=== PATIENT | female | born 1995 | race African-American/Black ===

== ENCOUNTER 2021-08-31 02:57 | Inpatient (IN) | payer OTHER ==
[~2021-08-31] VITALS: Ht 165.1 cm; Wt 83.1 kg
[2021-08-31] VITALS (20 sets, daily range): BP systolic 114–181; BP diastolic 68–111
[2021-08-31] MEDS ORDERED: PRENTAB9 PO (03:18)
[2021-08-31] MEDS ORDERED: OXYTOCIN DRIP 30 UNITS in IV 1 EA IV PRN ×4 (04:05)
[2021-08-31] MEDS ORDERED: OXYTOCIN INJ 10 UNITS/ML VIAL (J2590) IM PRN (04:05)
[2021-08-31] MEDS ORDERED: METHYLERGONOVINE MALEATE 0.2 MG/ML VIAL (J2210) IM PRN (04:05)
[2021-08-31] MEDS ORDERED: OXYTOCIN DRIP 30 UNITS in IV 1 EA IV SCH ×5 (04:05→16:45)
[2021-08-31] MEDS ORDERED: LIDOCAINE 1% MDV 20ML VIAL INFIL PRN (04:05)
[2021-08-31] MEDS ORDERED: OXYTOCIN INJ 10 UNITS/ML VIAL (J2590) IV PRN (04:05)
[2021-08-31] MEDS ORDERED: TRANEXAMIC ACID INJection 1,000 MG in NS 100 ML IV PRN (04:05)
[2021-08-31] MEDS ORDERED: PENICILLIN G POTASSIUM IV 5 MU in D5W MINI-BAG PLUS 100 ML IV STA (04:05)
[2021-08-31] MEDS ORDERED: CARBOPROST TROMETHAMINE 250 MCG/ML AMP IM PRN (04:05)
[2021-08-31 04:16] LABS: HEMATOCRIT 34.3 % (36.0-47.0); HEMOGLOBIN 11.3 g/dl (12.0-15.5); MEAN CORPUSCULAR HEMOGLOBIN 30.3 pg (27.0-33.0); MEAN CORPUSCULAR HGB CONC 32.9 g/dl (32.0-36.5); PLATELET COUNT, AUTOMATED 201 10^3/uL (150-450); RED BLOOD COUNT 3.73 10^6/uL (4.00-5.40)
[2021-08-31] MEDS ORDERED: PROMETHAZINE 25MG/ML 1ML VIAL IV ONE (04:20)
[2021-08-31] MEDS ORDERED: BUTORPHANOL 2 MG/ML INJ (J0595) IV ONE (04:20)
[2021-08-31] MEDS: LR 1,000 ML IV SCH ×3 (04:25→15:45)
[2021-08-31] MEDS: PENICILLIN G POTASSIUM IV 2.5 MU in IV 1 EA IV SCH ×2 (08:27→12:37)
[2021-08-31] MEDS ORDERED: METHYLERGONOVINE MALEATE 0.2 MG TAB PO PRN (16:45)
[2021-08-31] MEDS ORDERED: DIBUCAINE 1% OINTMENT 30GM TOP PRN (16:45)
[2021-08-31] MEDS ORDERED: IBUPROFEN 600MG TAB PO PRN (16:45)
[2021-08-31] MEDS: DOCUSATE SODIUM 100MG CAPSULE PO SCH (21:25)
[2021-09-01 05:55] VITALS: BP 150/92
[2021-09-01] MEDS: PRENATAL VITAMINS CHEWABLE TABLET PO SCH (08:33)
[2021-09-01] MEDS: DOCUSATE SODIUM 100MG CAPSULE PO SCH ×2 (08:33→20:21)
[2021-09-01] MEDS: IBUPROFEN 800 MG TAB PO PRN ×2 (08:34→17:08)
[2021-09-01 18:00] VITALS: BP 130/68
[2021-09-02 06:00] VITALS: BP 125/60
[2021-09-02] MEDS: IBUPROFEN 800 MG TAB PO PRN (08:17)
[2021-09-02] MEDS: PRENATAL VITAMINS CHEWABLE TABLET PO SCH (08:17)
[2021-09-02] MEDS: DOCUSATE SODIUM 100MG CAPSULE PO SCH (08:17)
== END 2021-09-02 11:27 | disposition home or self-care (01) | DRG 807 ==
LOC: M LDO 02:57 → M LDI 03:31 → M OBS 19:49
PROVIDERS: ADMIT Obstetrics & Gynecology; ATTEND Obstetrics & Gynecology
PROC: 10E0XZZ Delivery of Products of Conception, External Approach (ICD-10-PCS; principal; 2021-08-31)
DX: O98.52 Other viral diseases complicating childbirth (principal); Z37.0 Single live birth; Z3A.38 38 weeks gestation of pregnancy; B00.9 Herpesviral infection, unspecified; O99.824 Streptococcus B carrier state complicating childbirth; O36.0990 Maternal care for other rhesus isoimmunization, unspecified trimester, not applicable or unspecified; Z88.2 Allergy status to sulfonamides; Z88.6 Allergy status to analgesic agent

== ENCOUNTER 2022-08-04 12:25 | Day surgery (SDC) | payer OTHER ==
[~2022-08-04] VITALS: Ht 165.1 cm; Wt 68.5 kg
[~2022-08-04 12:25] MED LIST: HYAL60CA PO; NORE1PAT TOP; PRENTAB9 PO; [UNRECOGNIZED DRUG - CODE] PO
[2022-08-04] MEDS ORDERED: ONDANSETRON 4MG 2ML VIAL As Ordered ONE (14:55)
[2022-08-04] MEDS ORDERED: MIDAZOLAM INJ 2MG/2ML VIAL As Ordered ONE (14:55)
[2022-08-04] MEDS ORDERED: fentaNYL 250 MCG/5 ML INJECTION As Ordered ONE (14:55)
[2022-08-04] MEDS ORDERED: METOCLOPRAMIDE INJ 10MG/2ML VIAL As Ordered ONE (14:55)
[2022-08-04] MEDS ORDERED: LIDOCAINE 2% 100MG/5ML SDV (FOR ANES.) As Ordered ONE (14:55)
[2022-08-04] MEDS ORDERED: KETOROLAC 60MG 2ML VIAL As Ordered ONE (14:55)
[2022-08-04] MEDS ORDERED: propofoL 200 MG/20 ML VIAL As Ordered ONE (14:55)
[2022-08-04] MEDS ORDERED: LIDOCAINE W/EPINEPHRINE 1% 20ML VIAL As Ordered ONE (15:04)
[2022-08-04] MEDS ORDERED: fentaNYL 100 MCG/2 ML INJECTION As Ordered ONE (16:35)
[2022-08-04] MEDS ORDERED: HYDROMORPHONE HCL 0.5 MG/ 0.5 ML SYRINGE IV PRN (17:30)
[2022-08-04] MEDS ORDERED: oxyCODONE 5MG TAB PO PRN (17:30)
[2022-08-04] MEDS ORDERED: fentaNYL 100 MCG/2 ML INJECTION IV PRN (17:30)
[2022-08-04] MEDS ORDERED: ONDANSETRON 4MG 2ML VIAL IV PRN (17:30)
[2022-08-04] MEDS ORDERED: LR 1,000 ML IV SCH (17:30)
[2022-08-04 18:55] VITALS: BP 112/68
== END 2022-08-04 19:26 | disposition home or self-care (01) ==
LOC: M SDC 12:25
PROVIDERS: ATTEND Obstetrics & Gynecology
DX: D06.9 Carcinoma in situ of cervix, unspecified (principal); Z88.2 Allergy status to sulfonamides; Z88.8 Allergy status to other drugs, medicaments and biological substances; Z79.899 Other long term (current) drug therapy
CPT/HCPCS: 36415; 57461; 81025; 86850; 86900; 86901; 88307; J1100; J1885; J2250; J2405; J2765; J3010

== ENCOUNTER → 2023-01-19 | Outpatient (REF) | payer OTHER ==
[2023-01-19 18:57] LABS: APPEARANCE, URINE CLEAR (CLEAR); BACTERIA, URINE AUTO NEGATIVE (NEGATIVE); BILIRUBIN, URINE AUTO NEGATIVE (NEGATIVE); BLOOD, URINE BLOOD NEGATIVE (NEGATIVE); COLOR, URINE YELLOW (YELLOW); GLUCOSE, URINE (UA) AUTO NEGATIVE (NEGATIVE); KETONE, URINE AUTO NEGATIVE (NEGATIVE); LEUKOCYTE ESTERASE, URINE AUTO NEGATIVE (NEGATIVE); MUCUS, URINE SMALL (NEGATIVE); NITRITE, URINE AUTO NEGATIVE (NEGATIVE); PROTEIN, URINE AUTO NEGATIVE (NEGATIVE); RBC, URINE AUTO 1 /HPF (0-3); SPECIFIC GRAVITY URINE AUTO 1.024 (1.002-1.035); SQUAMOUS EPITHELIAL CELL UR AU 4 /HPF (0-6); UROBILINOGEN, URINE AUTO 0.2 mg/dL (0.0-2.0); WBC, URINE AUTO 2 /HPF (0-3)
== END ==
LOC: M SMT 16:53
PROVIDERS: ATTEND Urology
DX: N39.44 Nocturnal enuresis (principal)
CPT/HCPCS: 51798; 81001; 87086; G0463

== ENCOUNTER → 2023-01-26 | Outpatient (CLI) | payer OTHER | LOC: M RAD 15:14 | PROVIDERS: ATTEND Urology | DX: N39.44 Nocturnal enuresis (principal) ==